=== PATIENT | male | born 1985 | race Caucasian/White ===

== ENCOUNTER 2018-01-22 01:13 | Emergency (ER) | payer SELFPAY ==
[~2018-01-22] VITALS: Ht 182.9 cm; Wt 77.1 kg
[2018-01-22] MEDS ORDERED: NKM (01:31)
[2018-01-22] MEDS ORDERED: VALTREX500 MG ORAL (01:48)
--- NOTE | 2018-01-22 01:48 | Emergency Room Report ---
History of Present Illness General Chief Complaint: General Complaint Source: Patient Present Illness [facility] This is a 32-year-old male with no past medical problem. He presents with chief complaint of herpes exposure. His girlfriend was treated for vaginal itching and has herpetic lesion. She said that she was a virgin when she met him. She said that she noticed some bumps and discharge on his penis last week. He has no symptom right now. He came in to be checked just to be sure. He denies any complaint. Allergies: Coded Allergies: No Known Allergies (Unverified , 01/22/18) Patient History Past Medical History: see triage record, old chart reviewed Past Surgical History: none Pertinent Family History: none Social History: Denies: smoking Immunizations: other Reviewed Nursing Documentation: PMH: Agreed; PSxH: Agreed Review of Systems Eye: Denies: eye pain, blurred vision ENT: Denies: ear pain, nose congestion, throat swelling Respiratory: Denies: cough, shortness of breath Cardiovascular: Denies: chest pain, palpitations Gastrointestinal: Denies: abdominal pain, diarrhea, nausea, vomiting Musculoskeletal: Denies: back pain, joint pain Skin: Denies: rash Neurological: Denies: headache, numbness Endocrine: Denies: increased thirst, increased urine Hematologic/Lymphatic: Denies: easy bruising All Other Systems: negative except mentioned in HPI Physical Exam Sp02 EP Interpretation: reviewed, normal General Appearance: well appearing, no apparent distress, alert Head: normocephalic, atraumatic Eyes: bilateral eye PERRL, bilateral eye EOMI ENT: hearing grossly normal, normal pharynx Neck: full range of motion, supple, no meningismus Respiratory: chest non-tender, lungs clear, normal breath sounds Cardiovascular #1: regular rate, rhythm, no murmur Gastrointestinal: normal bowel sounds, non tender, no mass, no organomegaly, no bruit, non-distended Genitourinary: other - uncircumcized. small amount of smegma under foreskin. no lesions. Musculoskeletal: back normal, gait/station normal, normal range of motion Psychiatric: mood/affect normal Skin: warm/dry Medical Decision Making Diagnostic Impression: Primary Impression: Herpes exposure ER Course Patient with herpes exposure. He has no symptoms right now. We'll discharge home. Status: unchanged Disposition: HOME, SELF-CARE Condition: Stable Scripts Valacyclovir Hcl* (VALTREX*) 500 Mg Tablet 500 MG ORAL TWICE A DAY, #10 TAB 0 Refills Prov: SAMANTHA HEWITT M.D. 01/22/18 Additional Instructions: Follow-up your doctor in 7 days. Recommend outpatient testing for HIV, hepatitis, syphilis and other STDs. This can be done anonymously. Return for any concern. SAMANTHA HEWITT M.D. January 22, 2018 01:48
[2018-01-22 01:53] VITALS: BP 132/89
== END 2018-01-22 02:15 | disposition home or self-care (01) ==
LOC: EMR 02:13
DX: R36.9 Urethral discharge, unspecified (principal); Z20.828 Contact with and (suspected) exposure to other viral communicable diseases
CPT/HCPCS: 99283